=== PATIENT | female | born 1995 | race Caucasian/White ===

== ENCOUNTER 2020-06-13 18:30 | Emergency (ER) | payer MEDICARE ==
[~2020-06-13] VITALS: Ht 170.2 cm; Wt 76.0 kg
[2020-06-13] MEDS ORDERED: SODIUM CHLORIDE 0.9% 1,000 ML IV ONE (19:17)
[2020-06-13] MEDS ORDERED: ONDANSETRON HCL 4MG/2ML INJ IV STA (19:17)
[2020-06-13 19:19] LABS: CLARITY URINE CLEAR (CLEAR); COLOR URINE YELLOW (YELLOW); KETONES URINE NEGATIVE (NEGATIVE); LEUKOCYTE ESTERASE URINE 1+ (NEGATIVE); NITRITE URINE NEGATIVE (NEGATIVE); OCCULT BLOOD URINE 2+ (NEGATIVE); PH URINE 6.5 (4.5-8.0); PROTEIN URINE NEGATIVE (NEGATIVE); SPECIFIC GRAVITY URINE 1.024 (1.005-1.030)
[2020-06-13 20:25] LABS: BASOPHILS % 0.5 % (0.0-2.0); EOSINOPHILS % 1.5 % (0.0-5.0); HEMATOCRIT. 32.9 % (36.0-48.0); HEMOGLOBIN. 10.4 g/dL (12.0-16.0); LYMPHOCYTES % 23.1 % (20.0-50.0); MEAN CORPUSCULAR HEMOGLOBIN 22.5 pg (28.0-32.0); MEAN CORPUSCULAR VOLUME 70.9 fL (81.0-99.0); MEAN PLATELET VOLUME 8.2 fl (7.4-10.4); MONOCYTES % 10.2 % (2.0-8.0); NEUTROPHILS % 64.7 % (40.0-76.0); PLATELET 177 x1000/uL (130-400); RED BLOOD CELL COUNT 4.64 mill/uL (4.2-5.4); RED CELL DISTRIBUTION WIDTH 18.5 % (11.6-14.6)
[2020-06-13 20:30] LABS: CHLORIDE 106 mEq/L (98-107)
[2020-06-13] MEDS ORDERED: KETOROLAC 30MG/ML VIAL IV ONE (20:30)
[2020-06-13 20:52] LABS: HCG SCREEN NEGATIVE
[2020-06-13 23:05] VITALS: BP 128/70
== END 2020-06-13 23:07 | disposition home or self-care (01) ==
LOC: ER 18:42
DX: N39.0 Urinary tract infection, site not specified (principal); J45.909 Unspecified asthma, uncomplicated
CPT/HCPCS: 36415; 71045; 80053; 81003; 81025; 83690; 84484; 84703; 85025; 93005; 96361; 96374; 96375; 99285; J1885; J2405; J7030

== ENCOUNTER 2020-09-28 11:43 | Emergency (ER) | payer MEDICARE ==
[~2020-09-28] VITALS: Ht 172.7 cm; Wt 100.0 kg
[2020-09-28 11:45] VITALS: BP 113/67
[2020-09-28 16:17] LABS: HCG SCREEN NEGATIVE
== END 2020-09-28 15:45 | disposition left against medical advice (07) ==
LOC: ER 11:43
DX: Z32.00 Encounter for pregnancy test, result unknown (principal)
CPT/HCPCS: 84703; 99283